=== PATIENT | male | born 1940 | race Caucasian/White ===

== ENCOUNTER → 2019-07-06 13:37 | Outpatient (BNVA) | payer MEDICARE, MEDICAID, OTHER, SELFPAY | PROVIDERS: Family Provider Internal Medicine; PCP Internal Medicine; Referring Provider Internal Medicine; Visit Provider Orthopaedic Surgery | DX: S52.501A Unspecified fracture of the lower end of right radius, initial encounter for closed fracture (principal); X58.XXXA Exposure to other specified factors, initial encounter | CPT/HCPCS: 73110; L3982 ==

== ENCOUNTER 2019-07-06 15:04 | Outpatient (CLI) | payer MEDICARE, MEDICAID, OTHER, SELFPAY | END 2019-07-06 15:05 | disposition home or self-care (01) | LOC: SPT 15:05 | PROVIDERS: Family Provider Internal Medicine; PCP Internal Medicine; Visit Provider Orthopaedic Surgery | DX: S52.501D Unspecified fracture of the lower end of right radius, subsequent encounter for closed fracture with routine healing (principal); X58.XXXD Exposure to other specified factors, subsequent encounter | CPT/HCPCS: L3982 ==